=== PATIENT | male | born 1935 | race Caucasian/White ===

== ENCOUNTER 2017-01-24 11:41 | Emergency (ER) | payer MEDICARE, MEDICAID ==
[~2017-01-24] VITALS: Ht 165.1 cm; Wt 57.4 kg
[~2017-01-24 11:41] MED LIST: HYDR-3240 PO; TAMS-11 PO
[2017-01-24] MEDS ORDERED: FAMOTIDINE 20 MG/2 ML IVP ONE (12:30)
[2017-01-24] MEDS ORDERED: SODIUM CHLORIDE 0.9% 1,000ML IVBOLUS ONE (12:30)
[2017-01-24] MEDS ORDERED: ONDANSETRON 2MG/ML, 2ML IVPush ONE (12:30)
[2017-01-24] MEDS ORDERED: SODIUM CHLORIDE FLUSH 10ML SYR IVF ONE (12:30)
[2017-01-24] MEDS ORDERED: PROP40TA PO (12:31)
[2017-01-24] MEDS ORDERED: FAMOTIDINE 20 MG/2 ML ONE (12:32)
[2017-01-24] MEDS ORDERED: ONDANSETRON 2MG/ML, 2ML ONE (12:32)
[2017-01-24 13:04] LABS: BLOOD UREA NITROGEN 15 mg/dL (7-18)
[2017-01-24 13:07] LABS: ASPARTATE AMINO TRANSFERASE 12 U/L (15-37)
[2017-01-24 14:32] VITALS: BP 154/73
== END 2017-01-24 14:59 | disposition home or self-care (01) ==
LOC: ED 14:59
DX: E11.65 Type 2 diabetes mellitus with hyperglycemia (principal); I10 Essential (primary) hypertension; G20 Parkinson's disease; E87.6 Hypokalemia
CPT/HCPCS: 36415; 80053; 81003; 82962; 83690; 85025; 96361; 96374; 96375; 99285; J2405; J7030; S0028

== ENCOUNTER 2017-04-15 15:07 | Emergency (ER) | payer MEDICARE, MEDICAID ==
[~2017-04-15] VITALS: Ht 165.1 cm; Wt 63.6 kg
[~2017-04-15 15:07] MED LIST changes: +PROP40TA PO
[2017-04-15 15:14] VITALS: BP 145/94
[2017-04-15 15:56] LABS: BLOOD UREA NITROGEN 8 mg/dL (7-18)
[2017-04-15 15:59] LABS: HEMATOCRIT 48.7 % (39.2-51.8); WHITE BLOOD COUNT 6.9 x10^3/uL (3.4-10)
[2017-04-15 16:03] LABS: IS PT STATUS REG ER OR PRE ER? YES
== END 2017-04-15 16:08 | disposition left against medical advice (07) ==
LOC: ED 15:33
DX: R07.2 Precordial pain (principal); F10.120 Alcohol abuse with intoxication, uncomplicated; I10 Essential (primary) hypertension; E11.9 Type 2 diabetes mellitus without complications
CPT/HCPCS: 36415; 71010; 80048; 80307; 82040; 83880; 84484; 85025; 93005; 99285

== ENCOUNTER 2017-05-07 10:16 | Inpatient (IN) | payer MEDICARE, MEDICAID ==
[~2017-05-07] VITALS: Ht 165.1 cm; Wt 57.3 kg
[2017-05-07 10:57] LABS: HEMATOCRIT 43.2 % (39.2-51.8); HEMOGLOBIN 14.6 g/dL (13.7-18.0); WHITE BLOOD COUNT 11.3 x10^3/uL (3.4-10)
[2017-05-07] MEDS ORDERED: SODIUM CHLORIDE 0.9% 1,000ML IVBOLUS ONE (11:00)
[2017-05-07 11:09] LABS: ASPARTATE AMINO TRANSFERASE 644 U/L (15-37); BLOOD UREA NITROGEN 9 mg/dL (7-18)
[2017-05-07] MEDS ORDERED: HYDR-3240 PO (11:59)
[2017-05-07] MEDS ORDERED: MAGNESIUM SULFATE 1 GM, THIAMINE 100 MG, FOLIC ACID 1 MG, MVI ADULT 10 ML in SODIUM CHL... IV ONE (12:00)
[2017-05-07] MEDS ORDERED: LORazepam 2 MG/ML, 1ML IVPush ONE (12:00)
[2017-05-07] MEDS ORDERED: LORazepam 2 MG/ML, 1ML ONE (12:33)
[2017-05-07 12:37] LABS: ACETAMINOPHEN < 2 mcg/mL (10-30)
[2017-05-07] MEDS ORDERED: ONDANSETRON ODT 4 MG PO PRN (16:00)
[2017-05-07] MEDS ORDERED: GLUCAGON 1 MG IM PRN (16:00)
[2017-05-07] MEDS ORDERED: DEXTROSE 4 GM TAB.CHEW PO PRN (16:00)
[2017-05-07] MEDS ORDERED: DEXTROSE 50%, 50ML SYRINGE IVPush PRN (16:00)
[2017-05-07] MEDS ORDERED: LORazepam 2 MG/ML, 1ML IV PRN (16:00)
[2017-05-07] MEDS ORDERED: HEPARIN 5,000 UNITS/ML, 1ML ONE (16:54)
[2017-05-07] MEDS: INSULIN ASPART 100 UNITS/ML, PEN SQ-INSULIN SCH ×2 (17:21→21:55)
[2017-05-07] MEDS: HEPARIN 5,000 UNITS/ML, 1ML SQ SCH (17:22)
[2017-05-07] MEDS ORDERED: POTASSIUM CHLORIDE 20 MEQ in SODIUM CHLORIDE 0.9% 250 ML IV ONE (18:00)
[2017-05-07] MEDS: SODIUM CHLORIDE FLUSH 10ML SYR IVF SCH (21:47)
[2017-05-07] MEDS: SODIUM CHLORIDE 0.9% 1,000 ML IV SCH (21:47)
[2017-05-07 22:27] VITALS: BP 121/72
[2017-05-07] MEDS: LORazepam 2 MG/ML, 1ML IV PRN (22:30)
[2017-05-08] MEDS: HEPARIN 5,000 UNITS/ML, 1ML SQ SCH ×3 (00:34→16:01)
[2017-05-08 01:27] VITALS: BP 151/82
[2017-05-08] MEDS: LORazepam 2 MG/ML, 1ML IV PRN ×5 (02:34→21:11)
[2017-05-08] MEDS ORDERED: IBUPROFEN 200 MG TABLET PO ONE (05:00)
[2017-05-08 06:14] LABS: HEMATOCRIT 37.4 % (39.2-51.8); HEMOGLOBIN 12.6 g/dL (13.7-18.0); WHITE BLOOD COUNT 4.7 x10^3/uL (3.4-10)
[2017-05-08 06:35] LABS: ASPARTATE AMINO TRANSFERASE 1196 U/L (15-37); BLOOD UREA NITROGEN 13 mg/dL (7-18)
[2017-05-08] MEDS ORDERED: IBUPROFEN 200 MG TABLET PO PRN (07:00)
[2017-05-08 07:58] VITALS: BP 116/70
[2017-05-08] MEDS: INSULIN ASPART 100 UNITS/ML, PEN SQ-INSULIN SCH ×4 (08:12→21:22)
[2017-05-08] MEDS: TAMSULOSIN 0.4 MG CAP.ER.24H PO SCH (08:12)
[2017-05-08] MEDS: SODIUM CHLORIDE 0.9% 1,000 ML IV SCH (10:30)
[2017-05-08] MEDS: SODIUM CHLORIDE FLUSH 10ML SYR IVF SCH ×2 (10:30→21:11)
[2017-05-08 13:52] VITALS: BP 112/72
[2017-05-08] MEDS ORDERED: POTASSIUM CHLORIDE 20 MEQ in SODIUM CHLORIDE 0.9% 1,000 ML IV SCH ×2 (18:00→20:49)
[2017-05-08 18:56] VITALS: BP 136/77
[2017-05-08] MEDS: NS + 20MEQ KCL 1,000 ML IV SCH (21:11)
[2017-05-09] MEDS: LORazepam 2 MG/ML, 1ML IV PRN ×13 (00:11→22:40)
[2017-05-09] MEDS: HEPARIN 5,000 UNITS/ML, 1ML SQ SCH ×4 (00:11→23:58)
[2017-05-09 01:33] VITALS: BP 144/77
[2017-05-09] MEDS: NS + 20MEQ KCL 1,000 ML IV SCH ×2 (06:15→16:47)
[2017-05-09 07:27] LABS: ASPARTATE AMINO TRANSFERASE 767 U/L (15-37); BLOOD UREA NITROGEN 7 mg/dL (7-18)
[2017-05-09] MEDS: TAMSULOSIN 0.4 MG CAP.ER.24H PO SCH (07:45)
[2017-05-09 08:00] VITALS: BP 130/80
[2017-05-09] MEDS: INSULIN ASPART 100 UNITS/ML, PEN SQ-INSULIN SCH ×4 (08:09→21:00)
[2017-05-09 11:13] VITALS: BP 134/71
[2017-05-09] MEDS: SODIUM CHLORIDE FLUSH 10ML SYR IVF SCH ×2 (11:55→21:11)
[2017-05-10] MEDS: LORazepam 2 MG/ML, 1ML IV PRN ×4 (00:54→08:00)
[2017-05-10] MEDS: NS + 20MEQ KCL 1,000 ML IV SCH ×2 (03:13→13:53)
[2017-05-10 04:00] VITALS: BP 111/66
[2017-05-10 04:48] LABS: ASPARTATE AMINO TRANSFERASE 407 U/L (15-37); BLOOD UREA NITROGEN 4 mg/dL (7-18)
[2017-05-10 05:00] VITALS: BP 116/76
[2017-05-10] MEDS: INSULIN ASPART 100 UNITS/ML, PEN SQ-INSULIN SCH ×4 (05:54→20:51)
[2017-05-10] MEDS ORDERED: POTASSIUM CHLORIDE 20 MEQ in SODIUM CHLORIDE 0.9% 250 ML IV ONE (06:00)
[2017-05-10] MEDS: HEPARIN 5,000 UNITS/ML, 1ML SQ SCH ×2 (07:29→17:39)
[2017-05-10] MEDS: SODIUM CHLORIDE FLUSH 10ML SYR IVF SCH ×2 (09:37→20:44)
[2017-05-10] MEDS: methylPREDNISolone SOD SUCC 40 MG/ML IVPush SCH ×2 (10:05→18:45)
[2017-05-10] MEDS: CHLORDIAZEPOXIDE 25 MG CAPSULE PO SCH ×2 (10:15→16:00)
[2017-05-10] MEDS: TAMSULOSIN 0.4 MG CAP.ER.24H PO SCH (10:15)
[2017-05-10] MEDS ORDERED: CHLORDIAZEPOXIDE 25 MG CAPSULE PO SCH (21:00)
[2017-05-11] MEDS: HEPARIN 5,000 UNITS/ML, 1ML SQ SCH ×4 (00:04→23:59)
[2017-05-11] MEDS: methylPREDNISolone SOD SUCC 40 MG/ML IVPush SCH ×3 (01:55→18:53)
[2017-05-11 03:58] VITALS: BP 130/77
[2017-05-11 05:04] VITALS: BP 140/92
[2017-05-11] MEDS: INSULIN ASPART 100 UNITS/ML, PEN SQ-INSULIN SCH ×4 (06:22→20:17)
[2017-05-11 08:08] LABS: ASPARTATE AMINO TRANSFERASE 252 U/L (15-37); BLOOD UREA NITROGEN 10 mg/dL (7-18)
[2017-05-11] MEDS: SODIUM CHLORIDE FLUSH 10ML SYR IVF SCH ×2 (09:30→20:20)
[2017-05-11] MEDS: TAMSULOSIN 0.4 MG CAP.ER.24H PO SCH (09:31)
[2017-05-11] MEDS: INSULIN DETEMIR 100 UNITS/ML, PEN SQ-INSULIN SCH ×2 (09:31→20:18)
[2017-05-11] MEDS ORDERED: POTASSIUM CHLORIDE 20 MEQ TAB.ER.PRT PO ONE (10:00)
[2017-05-11] MEDS: NS + 20MEQ KCL 1,000 ML IV SCH (12:13)
[2017-05-12] MEDS ORDERED: ZOLPIDEM 5MG TABLET ONE (00:15)
[2017-05-12] MEDS ORDERED: ZOLPIDEM 5MG TABLET PO PRN (00:30)
[2017-05-12] MEDS: methylPREDNISolone SOD SUCC 40 MG/ML IVPush SCH ×2 (02:10→10:41)
[2017-05-12 04:00] VITALS: BP 142/70
[2017-05-12 04:51] LABS: ASPARTATE AMINO TRANSFERASE 118 U/L (15-37); BLOOD UREA NITROGEN 11 mg/dL (7-18)
[2017-05-12] MEDS: INSULIN ASPART 100 UNITS/ML, PEN SQ-INSULIN SCH ×4 (05:33→22:33)
[2017-05-12] MEDS: HEPARIN 5,000 UNITS/ML, 1ML SQ SCH ×2 (08:28→16:17)
[2017-05-12] MEDS: TAMSULOSIN 0.4 MG CAP.ER.24H PO SCH (08:28)
[2017-05-12] MEDS: SODIUM CHLORIDE FLUSH 10ML SYR IVF SCH ×2 (08:28→20:29)
[2017-05-12] MEDS: INSULIN DETEMIR 100 UNITS/ML, PEN SQ-INSULIN SCH ×2 (08:29→22:34)
[2017-05-12] MEDS: LORazepam 2 MG/ML, 1ML IV PRN ×4 (10:20→23:36)
[2017-05-12] MEDS: NS + 20MEQ KCL 1,000 ML IV SCH (11:38)
[2017-05-13 00:11] VITALS: BP 150/88
[2017-05-13] MEDS ORDERED: POTASSIUM CHLORIDE 20 MEQ TAB.ER.PRT PO ONE (06:30)
[2017-05-13] MEDS ORDERED: POTASSIUM CHLORIDE 40 MEQ in SODIUM CHLORIDE 0.9% 500 ML IV ONE (06:30)
[2017-05-13 07:09] VITALS: BP_SYST 146; BP_SYST 152; BP_DIAS 90; BP_DIAS 96
[2017-05-13] MEDS: HEPARIN 5,000 UNITS/ML, 1ML SQ SCH ×3 (07:54→16:35)
[2017-05-13] MEDS: INSULIN ASPART 100 UNITS/ML, PEN SQ-INSULIN SCH ×4 (07:59→22:28)
[2017-05-13] MEDS: TAMSULOSIN 0.4 MG CAP.ER.24H PO SCH (09:28)
[2017-05-13] MEDS: INSULIN DETEMIR 100 UNITS/ML, PEN SQ-INSULIN SCH ×2 (09:29→22:28)
[2017-05-13] MEDS: SODIUM CHLORIDE FLUSH 10ML SYR IVF SCH ×2 (09:32→22:28)
[2017-05-13 12:42] LABS: HIV 1&2 ANTIBODY SCREEN Nonreactive (Nonreactive); HIV-1 p24 ANTIGEN Nonreactive (Nonreactive)
[2017-05-13] MEDS ORDERED: POTASSIUM PHOSPHATE 44 MEQ in SODIUM CHLORIDE 0.9% 500 ML IV ONE (14:30)
[2017-05-13 15:00] VITALS: BP 148/86
[2017-05-13 19:54] VITALS: BP 139/86
[2017-05-14] MEDS: HEPARIN 5,000 UNITS/ML, 1ML SQ SCH ×3 (00:42→16:53)
[2017-05-14 01:48] VITALS: BP 150/83
[2017-05-14 05:23] LABS: ASPARTATE AMINO TRANSFERASE 50 U/L (15-37); BLOOD UREA NITROGEN 3 mg/dL (7-18)
[2017-05-14] MEDS ORDERED: POTASSIUM CHLORIDE 40 MEQ in SODIUM CHLORIDE 0.9% 500 ML IV ONE (06:30)
[2017-05-14] MEDS ORDERED: POTASSIUM CHLORIDE 20 MEQ TAB.ER.PRT PO ONE ×2 (06:30)
[2017-05-14] MEDS: INSULIN ASPART 100 UNITS/ML, PEN SQ-INSULIN SCH ×3 (07:00→16:52)
[2017-05-14 07:44] VITALS: BP 152/116
[2017-05-14] MEDS: INSULIN DETEMIR 100 UNITS/ML, PEN SQ-INSULIN SCH (08:08)
[2017-05-14] MEDS: TAMSULOSIN 0.4 MG CAP.ER.24H PO SCH (08:09)
[2017-05-14] MEDS: SODIUM CHLORIDE FLUSH 10ML SYR IVF SCH ×2 (08:10→23:58)
[2017-05-14 16:00] VITALS: BP 114/76
[2017-05-14] MEDS ORDERED: FLU VACC QS2017-18 (36MOS+) UP/PF 0.5 ML IM-VACC ONE (16:00)
[2017-05-14] MEDS ORDERED: PNEUMOCOCCAL 23 VACCINE IM-VACC ONE (16:00)
[2017-05-14] MEDS ORDERED: MAGNESIUM SULFATE PMX 2GM/50ML 50 ML IV ONE (16:30)
[2017-05-14] MEDS: LORazepam 2 MG/ML, 1ML IV PRN (16:51)
[2017-05-14 19:28] VITALS: BP 124/81
[2017-05-14 19:52] LABS: POTASSIUM,URINE RANDOM 48 mmol/L
[2017-05-15] MEDS: HEPARIN 5,000 UNITS/ML, 1ML SQ SCH ×3 (00:03→16:50)
[2017-05-15 02:25] VITALS: BP 144/89
[2017-05-15 05:51] LABS: BLOOD UREA NITROGEN 8 mg/dL (7-18)
[2017-05-15] MEDS: INSULIN ASPART 100 UNITS/ML, PEN SQ-INSULIN SCH ×4 (08:10→16:53)
[2017-05-15] MEDS: SODIUM CHLORIDE FLUSH 10ML SYR IVF SCH (08:13)
[2017-05-15] MEDS: INSULIN DETEMIR 100 UNITS/ML, PEN SQ-INSULIN SCH ×2 (08:21)
[2017-05-15] MEDS: TAMSULOSIN 0.4 MG CAP.ER.24H PO SCH (08:23)
[2017-05-15] MEDS ORDERED: MAGNESIUM CHLORIDE 64 MG TABLET.DR PO SCH (09:00)
[2017-05-15 09:09] VITALS: BP 84/53
[2017-05-15 09:15] VITALS: BP_SYST 84; BP_SYST 90; BP_DIAS 50; BP_DIAS 57
[2017-05-15] MEDS ORDERED: SODIUM CHLORIDE 0.9%, 500ML IVBOLUS ONE (09:30)
[2017-05-15 10:56] VITALS: BP 129/82
[2017-05-15 13:49] VITALS: BP 126/77
[2017-05-15] MEDS ORDERED: MAGN300C PO (14:54)
[2017-05-15] MEDS ORDERED: INSU100I28 SQ-INSULIN (14:54)
[2017-05-15] MEDS ORDERED: POTA25TA4 PO (14:54)
[2017-05-15] MEDS ORDERED: TAMS-11 PO (14:54)
[2017-05-15] MEDS: LORazepam 2 MG/ML, 1ML IV PRN ×2 (15:29→16:38)
[2017-05-15 16:36] VITALS: BP 127/85
== END 2017-05-15 18:31 | DRG 432 ==
LOC: ED 10:33 → EDIP 12:18 → 4NOR 21:00 → CCU 05-09 11:37 → 5SO 05-12 16:48
PROVIDERS: ADMIT Family Medicine; ATTEND Family Medicine
DX: K70.10 Alcoholic hepatitis without ascites (principal); G92 Toxic encephalopathy; E46 Unspecified protein-calorie malnutrition; G20 Parkinson's disease; E87.1 Hypo-osmolality and hyponatremia; F10.239 Alcohol dependence with withdrawal, unspecified; E11.9 Type 2 diabetes mellitus without complications; E87.6 Hypokalemia; I10 Essential (primary) hypertension; N40.0 Benign prostatic hyperplasia without lower urinary tract symptoms; F10.229 Alcohol dependence with intoxication, unspecified; Z68.21 Body mass index [BMI] 21.0-21.9, adult; Z79.4 Long term (current) use of insulin
CPT/HCPCS: 36415; 76705; 80048; 80053; 80074; 80307; 81001; 82140; 82607; 82746; 82962; 83036; 83735; 83930; 83935; 84100; 84132; 84133; 84443; 85025; 85610; 86592; 86703; 87081; 87899; 90732; 93005; 96361; 96372; 96374; J1644; J1815; J3411; J3475; J3480; 92523-GN; G0435; G0479; J2060; J2920; J7030; J7040; J7050

== ENCOUNTER 2018-09-30 09:25 | Inpatient (IN) | payer MEDICARE, MEDICAID ==
[~2018-09-30] VITALS: Ht 165.1 cm; Wt 62.1 kg
[~2018-09-30 09:25] MED LIST changes: +INSU100I28 SQ-INSULIN; +MAGN300C PO; +POTA25TA4 PO
[2018-09-30] MEDS ORDERED: ONDANSETRON ODT 4 MG PO ONE (10:00)
[2018-09-30] MEDS ORDERED: FAMOTIDINE 20 MG/2 ML IVPush ONE (10:00)
[2018-09-30] MEDS ORDERED: ONDANSETRON 2MG/ML, 2ML IVPush ONE (10:00)
[2018-09-30] MEDS ORDERED: SODIUM CHLORIDE FLUSH 10ML SYR IVF ONE (10:00)
[2018-09-30] MEDS ORDERED: FAMOTIDINE 20 MG TABLET PO ONE (10:00)
[2018-09-30] MEDS ORDERED: FAMOTIDINE 20 MG/2 ML ONE (10:20)
[2018-09-30] MEDS ORDERED: ONDANSETRON 2MG/ML, 2ML ONE (10:20)
[2018-09-30] MEDS ORDERED: TOPI25TA8 PO (10:27)
[2018-09-30] MEDS ORDERED: METF1000 PO (10:28)
[2018-09-30 10:29] LABS: BASOPHILS # (AUTO) 0.01 x10^3/uL (0-0.1); BASOPHILS % (AUTO) 0 % (0-1); EOSINOPHILS # (AUTO) 0.07 x10^3/uL (0-0.4); EOSINOPHILS % (AUTO) 1 % (1-7); LYMPHOCYTES # (AUTO) 1.01 x10^3/uL (1-3.4); LYMPHOCYTES % (AUTO) 14 % (22-44); MD NO; MEAN CORPUSCULAR HGB CONC 32.3 g/dL (33.2-36.2); MEAN CORPUSCULAR VOLUME 99.1 fL (81-97); MEAN PLATELET VOLUME 7.4 fL (7.4-10.4); MONOCYTES # (AUTO) 0.19 x10^3/uL (0.2-0.8); MONOCYTES % (AUTO) 3 % (2-9); NEUTROPHILS # (AUTO) 5.72 x10^3/uL (1.8-6.8); NEUTROPHILS % (AUTO) 82 % (42-75); PLATELET COUNT 314 x10^3/uL (130-400); RED BLOOD COUNT 4.85 x10^6/uL (4.38-5.82); RED CELL DISTRIBUTION WIDTH 13.7 % (9.4-14.8)
[2018-09-30] MEDS ORDERED: LATA2.5D3 RIGHTEYE (10:29)
[2018-09-30] MEDS ORDERED: MORPHINE SULFATE 4 MG/ML, 1ML ONE ×2 (10:32→10:49)
[2018-09-30] MEDS: MORPHINE SULFATE 4 MG/ML, 1ML IVPush PRN ×2 (10:34→10:53)
--- NOTE | 2018-09-30 10:40 | NUR ---
md to bedside for assessment.
[2018-09-30 10:41] LABS: ALANINE AMINOTRANSFERASE 18 U/L (12-78); ALBUMIN 4.2 g/dL (3.4-5.0); ANION GAP 10 mmol/L (5-15); CALCIUM 9.3 mg/dL (8.5-10.1); CHLORIDE 104 mmol/L (98-107); CREATININE 0.84 mg/dL (0.7-1.3)
[2018-09-30 10:43] LABS: ALKALINE PHOSPHATASE 63 U/L (45-117); BILIRUBIN,TOTAL 1.4 mg/dL (0.2-1.0)
--- NOTE | 2018-09-30 10:51 | NUR ---
report form [facility]. pt medicated per oct. connected to monitors. vss. pt to ct at this time.
--- NOTE | 2018-09-30 10:53 | NUR ---
SECOND DOSE OF MORPHINE 4MG GIVEN TO PATIENT FOR SEVERE ABD PAIN. PT TO CT AT THIS TIME.
[2018-09-30] MEDS ORDERED: OMNIPAQUE 350 MG/ML, 100ML BOTTLE ONE (11:03)
--- NOTE | 2018-09-30 11:08 | NUR ---
pt back from ct
[2018-09-30 11:10] LABS: MICROSCOPIC INDICATED
--- NOTE | 2018-09-30 11:14 | NUR ---
lab to bedside
[2018-09-30] MEDS ORDERED: PHENYLEPHRINE 10 MG/ML ONE (11:16)
[2018-09-30 11:26] LABS: CULTURE INDICATED? NO
--- NOTE | 2018-09-30 11:58 | NUR ---
RECEIVED REPORT FROM JAGRUTI DE SOUZA. CARE ASSUMED. PT AND NEPHEW UPDATED ON POC, TO BE ADMITTED TO HOSPITAL, AWAITING ROOM ON FLOOR, AGREE TO POC. PT ASSISTED WITH URINAL, DECLINED OFFER TO AMBULATE TO RESTROOM. PT REQUESTING PAIN MEDICATION "PAIN IS COMING BACK, LIKE 05/22" TO DISCUSS WITH DR. DARNELL. CALL LIGHT IN REACH. FALL PRECAUTIONS IN PLACE. SIDE RAILS UPX2.
--- NOTE | 2018-09-30 12:00 | NUR ---
us and admit orders received at this time. vss. call light within reach.
--- NOTE | 2018-09-30 12:05 | NUR ---
DISCUSSED LACTIC ACID WITH DR. DARNELL, AWARE, NO IV FLUIDS PER MD AT THIS TIME.
[2018-09-30] MEDS ORDERED: HYDROmorphone 1 MG/ML, 1ML ONE ×2 (12:07→13:51)
[2018-09-30] MEDS: HYDROmorphone 2 MG/ML, 1ML IVPush PRN ×2 (12:09→13:53)
--- NOTE | 2018-09-30 12:13 | NUR ---
PT MEDICATED NOTED PER DR. DARNELL ORDER FOR 10 PAIN. RESTING COMFORTABLY. VSS. NEPHEW AT BEDSIDE. CALL LIGHT IN REACH
--- NOTE | 2018-09-30 12:20 | NUR ---
PT IN US
[2018-09-30] MEDS ORDERED: LABETALOL 5MG/ML, 20ML IVPush PRN (12:30)
[2018-09-30] MEDS ORDERED: BISACODYL 10 MG SUPP PR PRN (12:30)
[2018-09-30] MEDS ORDERED: POLYETHYLENE GLYCOL 17 GM PACKET PO PRN (12:30)
[2018-09-30] MEDS ORDERED: DOCUSATE 100 MG CAPSULE PO PRN (12:30)
[2018-09-30] MEDS ORDERED: ENALAPRILAT 1.25 MG/ML, 2ML IVPush PRN (12:30)
--- NOTE | 2018-09-30 12:55 | NUR ---
PT REMAINS IN US. ADMITTING PROVIDER AT BEDSIDE SPEAKING WITH PT NEPHEW.
--- NOTE | 2018-09-30 13:07 | NUR ---
PT REMAINS IN US
--- NOTE | 2018-09-30 13:33 | NUR ---
PT BACK FROM US. ASSISTED WITH URINAL. PT AWARE HE REMAINS NPO AT THIS TIME. LAST TIME HE ATE/DRANK WAS [employer] DUMPLING SOUP LAST NIGHT AT 1800. PT REPORTS "PAIN IS BETTER, IT'S WHERE IT NORMALLY IS, I'M OKAY RIGHT NOW." RATES PAIN 6/10. REFUSES NEED FOR ADDITIONAL PAIN MEDICATION AT THIS TIME. NEPHEW AT BEDSIDE. VSS. CALL LIGHT IN REACH.
[2018-09-30] MEDS: SODIUM CHLORIDE 0.9% 1,000 ML IV SCH ×2 (13:36→21:44)
--- NOTE | 2018-09-30 13:38 | NUR ---
April alvarez in [facility] - 09/30/18 at 1340 by JARET ROOM [facility] RECEIVED, ATTEMPTED TO CALL REPORT TO HAMMAD Ovalle RN FOR ROOM [facility] AT THIS TIME, UNABLE TO REACH. AWAITING RETURN CALL
--- NOTE | 2018-09-30 13:40 | NUR ---
ROOM 473 RECEIVED, ATTEMPTED TO CALL REPORT TO EBONY DE SOUZA AT THIS TIME, UNABLE TO REACH, AWAITING RETURN CALL.
--- NOTE | 2018-09-30 13:47 | NUR ---
REPORT TO EBONY DE SOUZA AT THIS TIME. PT AWAITING TRANSPORT TO FLOOR.
--- NOTE | 2018-09-30 13:54 | NUR ---
ADMITTING PROVIDER AT BEDSIDE FOR EVALUATION. PT MEDICATED NOTED PER ORDER FOR 6/10 ABD PAIN "WORSE AFTER THE DOCTOR PUSHED ON MY STOMACH." VSS. CALL LIGHT IN REACH. AWAITING TRANSPORT TO FLOOR.
[2018-09-30 14:16] VITALS: BP 161/94
[2018-09-30] MEDS ORDERED: CEFOTETAN PMX 2GM/50ML 50 ML ONE (14:29)
[2018-09-30] MEDS ORDERED: FENTANYL PF 250 MCG/5ML ONE (14:29)
[2018-09-30] MEDS ORDERED: BUPIVACAINE/PF-EPI 0.5% 1:200K ONE (14:34)
[2018-09-30] MEDS ORDERED: PROMETHAZINE 25 MG/ML, 1ML IM PRN ×2 (15:00)
[2018-09-30] MEDS ORDERED: PROMETHAZINE 12.5 MG SUPP PR PRN (15:00)
[2018-09-30] MEDS ORDERED: PROMETHAZINE 25 MG/ML, 1ML IV PRN (15:00)
[2018-09-30] MEDS ORDERED: PROMETHAZINE 25 MG SUPP PR PRN (15:00)
[2018-09-30] MEDS ORDERED: ONDANSETRON ODT 8 MG PO PRN (15:00)
[2018-09-30] MEDS ORDERED: SODIUM CHLORIDE 0.9% 1,000ML IVBOLUS ONE (15:00)
[2018-09-30] MEDS ORDERED: ONDANSETRON 2MG/ML, 2ML IV PRN (15:00)
[2018-09-30] MEDS ORDERED: HYDROmorphone 2 MG/ML, 1ML IVPush PRN (15:00)
[2018-09-30] MEDS ORDERED: OXYcodone 5 MG/5 ML ORAL.SOL UDC PO PRN (15:00)
[2018-09-30] MEDS ORDERED: hydrALAzine 20 MG/ML, 1ML IV PRN (15:00)
[2018-09-30] MEDS ORDERED: LABETALOL 5MG/ML, 20ML IV PRN (15:00)
[2018-09-30] MEDS ORDERED: MEPERIDINE/PF 25MG/0.5ML IVPush PRN (15:00)
[2018-09-30] MEDS ORDERED: MORPHINE SULFATE 4 MG/ML, 1ML IVPush PRN (15:00)
[2018-09-30] MEDS ORDERED: NEOSTIGMINE 1 MG/ML, 10ML ONE (15:28)
[2018-09-30] MEDS ORDERED: ROCURONIUM 10MG/ML,5ML ONE (15:28)
[2018-09-30] MEDS ORDERED: GLYCOPYRROLATE 0.2MG/1ML, 5ML ONE (15:28)
[2018-09-30] MEDS ORDERED: PROPOFOL 10 MG/ML, 20ML ONE (15:28)
[2018-09-30] MEDS ORDERED: SUGAMMADEX 200 MG/2 ML IVPush ONE (15:53)
[2018-09-30] MEDS ORDERED: OXYcodone 5 MG/5 ML ORAL.SOL UDC ONE (16:31)
[2018-09-30] MEDS ORDERED: FENTANYL PF 100 MCG/2ML ONE (16:33)
[2018-09-30] MEDS: FENTANYL PF 100 MCG/2ML IV PRN ×2 (16:35→16:45)
[2018-09-30] MEDS: morphine SULFATE 10 MG/ML, 1ML IVPush PRN (18:41)
[2018-09-30] MEDS: hydrOXyzine 50MG TABLET PO PRN (18:44)
[2018-09-30 18:45] VITALS: BP 124/82
[2018-09-30 21:35] VITALS: BP 109/66
[2018-09-30] MEDS: TAMSULOSIN 0.4 MG CAP.ER.24H PO SCH (22:14)
[2018-09-30] MEDS: FAMOTIDINE 20 MG/2 ML IVPush SCH (22:16)
[2018-09-30] MEDS: PIPERACILLIN/TAZO/PMX 3.375GM 50 ML IV SCH (22:16)
[2018-10-01 00:10] VITALS: BP 97/64
[2018-10-01 04:07] VITALS: BP 99/62
[2018-10-01 04:10] LABS: ANION GAP 8 mmol/L (5-15); CALCIUM 7.7 mg/dL (8.5-10.1); CHLORIDE 105 mmol/L (98-107)
[2018-10-01 04:13] LABS: ALANINE AMINOTRANSFERASE 158 U/L (12-78); ALKALINE PHOSPHATASE 68 U/L (45-117); BILIRUBIN,TOTAL 2.3 mg/dL (0.2-1.0); CREATININE 1.21 mg/dL (0.7-1.3); TOTAL PROTEIN 6.4 g/dL (6.4-8.2)
[2018-10-01 04:41] LABS: MEAN CORPUSCULAR HEMOGLOBIN 32.6 pg (27.5-34.5); MEAN CORPUSCULAR HGB CONC 33.4 g/dL (33.2-36.2); MEAN CORPUSCULAR VOLUME 97.8 fL (81-97); PLATELET COUNT 248 x10^3/uL (130-400); RED BLOOD COUNT 4.24 x10^6/uL (4.38-5.82); RED CELL DISTRIBUTION WIDTH 14.1 % (9.4-14.8)
[2018-10-01 05:23] LABS: BASOPHILS % (AUTO) 0 % (0-1); EOSINOPHILS % (AUTO) 0 % (1-7); LYMPHOCYTES # (AUTO) 0.23 x10^3/uL (1-3.4); LYMPHOCYTES % (AUTO) 2 % (22-44); MD SCAN; MONOCYTES # (AUTO) 0.23 x10^3/uL (0.2-0.8); MONOCYTES % (AUTO) 2 % (2-9); NEUTROPHILS % (AUTO) 96 % (42-75)
[2018-10-01] MEDS: morphine SULFATE 10 MG/ML, 1ML IVPush PRN ×3 (06:05→22:12)
[2018-10-01] MEDS: PIPERACILLIN/TAZO/PMX 3.375GM 50 ML IV SCH ×3 (06:05→22:21)
[2018-10-01] MEDS ORDERED: MAGNESIUM SULFATE PMX 2GM/50ML 50 ML IV ONE (07:30)
[2018-10-01] MEDS ORDERED: SODIUM CHLORIDE 0.9% 1,000 ML IV SCH ×2 (08:00→12:20)
[2018-10-01] MEDS: TAMSULOSIN 0.4 MG CAP.ER.24H PO SCH (08:02)
[2018-10-01] MEDS: FAMOTIDINE 20 MG/2 ML IVPush SCH ×2 (08:02→22:13)
[2018-10-01] MEDS ORDERED: FOLIC ACID 5 MG/ML IM ONE (08:30)
[2018-10-01] MEDS ORDERED: LORazepam 2 MG/ML, 1ML IV PRN ×5 (08:30)
[2018-10-01] MEDS ORDERED: THIAMINE 200 MG in DEXTROSE 5% 50 ML IVPB ONE (08:30)
[2018-10-01] MEDS ORDERED: FOLIC ACID 1 MG TABLET PO ONE (09:00)
[2018-10-01] MEDS ORDERED: THIAMINE 100MG TABLET PO ONE (09:00)
[2018-10-01] MEDS: MULTIVITAMINS/MINERALS TABLET PO SCH (09:18)
[2018-10-01] MEDS: OXYcodone IR 5MG TABLET PO PRN ×2 (09:30→10:05)
[2018-10-01 10:15] VITALS: BP 92/57
[2018-10-01] MEDS: HEPARIN 5,000 UNITS/ML, 1ML SQ SCH ×2 (11:32→22:13)
[2018-10-01 14:03] VITALS: BP 119/63
[2018-10-01] MEDS ORDERED: MORPHINE SULFATE 4 MG/ML, 1ML ONE ×2 (16:47→16:56)
[2018-10-01 19:35] VITALS: BP 117/70
[2018-10-01] MEDS: hydrOXyzine 50MG TABLET PO PRN (22:13)
[2018-10-02 00:31] VITALS: BP 137/76
[2018-10-02] MEDS: OXYcodone IR 5MG TABLET PO PRN ×5 (00:34→22:02)
[2018-10-02] MEDS: morphine SULFATE 10 MG/ML, 1ML IVPush PRN (05:05)
[2018-10-02 05:56] LABS: BASOPHILS # (AUTO) 0.02 x10^3/uL (0-0.1); BASOPHILS % (AUTO) 0 % (0-1); EOSINOPHILS # (AUTO) 0.15 x10^3/uL (0-0.4); EOSINOPHILS % (AUTO) 2 % (1-7); LYMPHOCYTES # (AUTO) 0.64 x10^3/uL (1-3.4); LYMPHOCYTES % (AUTO) 7 % (22-44); MD NO; MEAN CORPUSCULAR HEMOGLOBIN 33.3 pg (27.5-34.5); MEAN CORPUSCULAR HGB CONC 33.8 g/dL (33.2-36.2); MEAN CORPUSCULAR VOLUME 98.6 fL (81-97); MEAN PLATELET VOLUME 7.2 fL (7.4-10.4); MONOCYTES # (AUTO) 0.31 x10^3/uL (0.2-0.8); MONOCYTES % (AUTO) 3 % (2-9); NEUTROPHILS # (AUTO) 8.76 x10^3/uL (1.8-6.8); NEUTROPHILS % (AUTO) 89 % (42-75); PLATELET COUNT 205 x10^3/uL (130-400); RED CELL DISTRIBUTION WIDTH 14.2 % (9.4-14.8)
[2018-10-02] MEDS: PIPERACILLIN/TAZO/PMX 3.375GM 50 ML IV SCH (06:07)
[2018-10-02 06:08] LABS: ALANINE AMINOTRANSFERASE 112 U/L (12-78); ALBUMIN 2.9 g/dL (3.4-5.0); ANION GAP 7 mmol/L (5-15); CALCIUM 7.9 mg/dL (8.5-10.1); CHLORIDE 104 mmol/L (98-107); CREATININE 0.72 mg/dL (0.7-1.3)
[2018-10-02 06:10] LABS: ALKALINE PHOSPHATASE 72 U/L (45-117)
[2018-10-02] MEDS ORDERED: POTASSIUM PHOS 4.4 MEQ/ML IV ONE (07:30)
[2018-10-02] MEDS ORDERED: POTASSIUM PHOSPHATE 44 MEQ in SODIUM CHLORIDE 0.9% 500 ML IV ONE (08:00)
[2018-10-02] MEDS ORDERED: SODIUM CHLORIDE 0.9% 1,000 ML IV SCH (08:00)
[2018-10-02] MEDS: TAMSULOSIN 0.4 MG CAP.ER.24H PO SCH (08:53)
[2018-10-02] MEDS: MULTIVITAMINS/MINERALS TABLET PO SCH (08:53)
[2018-10-02] MEDS ORDERED: MORPHINE SULFATE 4 MG/ML, 1ML IVPush PRN (09:00)
[2018-10-02 09:01] VITALS: BP 172/90
[2018-10-02] MEDS: HEPARIN 5,000 UNITS/ML, 1ML SQ SCH ×2 (10:23→20:44)
[2018-10-02 12:25] VITALS: BP 160/81
[2018-10-02 19:39] VITALS: BP 146/88
[2018-10-02] MEDS: LATANOPROST OP SCH ×2 (20:00→21:00)
[2018-10-03] MEDS: ONDANSETRON 2MG/ML, 2ML IVPush PRN ×2 (00:23→06:32)
[2018-10-03 01:08] VITALS: BP 150/102
[2018-10-03 05:16] LABS: ALBUMIN 2.9 g/dL (3.4-5.0); ANION GAP 8 mmol/L (5-15); CALCIUM 8.3 mg/dL (8.5-10.1); CHLORIDE 102 mmol/L (98-107)
[2018-10-03 05:19] LABS: ALANINE AMINOTRANSFERASE 78 U/L (12-78); ALKALINE PHOSPHATASE 82 U/L (45-117); BILIRUBIN,TOTAL 2.8 mg/dL (0.2-1.0); CREATININE 0.65 mg/dL (0.7-1.3); TOTAL PROTEIN 6.6 g/dL (6.4-8.2)
[2018-10-03] MEDS ORDERED: SODIUM PHOSPHATE 10 MMOL in SODIUM CHLORIDE 0.9% 500 ML IV ONE (06:00)
[2018-10-03] MEDS: OXYcodone IR 5MG TABLET PO PRN ×4 (06:32→22:37)
[2018-10-03 07:00] VITALS: BP 133/81
[2018-10-03] MEDS: TAMSULOSIN 0.4 MG CAP.ER.24H PO SCH (08:04)
[2018-10-03] MEDS: MULTIVITAMINS/MINERALS TABLET PO SCH (08:04)
[2018-10-03] MEDS: HEPARIN 5,000 UNITS/ML, 1ML SQ SCH ×2 (09:49→20:08)
[2018-10-03 13:08] VITALS: BP 132/80
[2018-10-03 19:50] VITALS: BP 158/97
[2018-10-03] MEDS: SENNA/DOCUSATE TABLET PO SCH (20:08)
[2018-10-03] MEDS: LATANOPROST OP SCH (20:08)
[2018-10-04 02:51] VITALS: BP_SYST 148; BP_SYST 162; BP_DIAS 103; BP_DIAS 94
[2018-10-04] MEDS: ONDANSETRON 2MG/ML, 2ML IVPush PRN ×3 (04:24→22:05)
[2018-10-04] MEDS: OXYcodone IR 5MG TABLET PO PRN (04:53)
[2018-10-04 08:57] VITALS: BP 148/77
[2018-10-04] MEDS: SENNA/DOCUSATE TABLET PO SCH ×2 (09:18→19:47)
[2018-10-04] MEDS: MULTIVITAMINS/MINERALS TABLET PO SCH (09:18)
[2018-10-04] MEDS: TAMSULOSIN 0.4 MG CAP.ER.24H PO SCH (09:18)
[2018-10-04] MEDS: HEPARIN 5,000 UNITS/ML, 1ML SQ SCH ×2 (09:58→22:00)
[2018-10-04] MEDS ORDERED: MORPHINE SULFATE 4 MG/ML, 1ML IV ONE (12:00)
[2018-10-04] MEDS: POTASSIUM PHOSPHATE IV SCH ×2 (12:15→22:28)
[2018-10-04] MEDS: [UNRECOGNIZED DRUG - OTHER] IV SCH ×2 (12:15→22:28)
[2018-10-04] MEDS: POTASSIUM CHLORIDE IV SCH ×2 (12:15→22:28)
[2018-10-04 14:13] VITALS: BP 152/95
[2018-10-04] MEDS: KETOROLAC 30 MG/1 ML IVPush SCH ×2 (15:43→22:00)
[2018-10-04] MEDS ORDERED: morphine SULFATE 10 MG/ML, 1ML IVPush PRN (16:00)
[2018-10-04 20:03] VITALS: BP 122/80
[2018-10-04] MEDS: LATANOPROST OP SCH (22:00)
[2018-10-05 02:06] VITALS: BP 127/74
[2018-10-05] MEDS: ONDANSETRON 2MG/ML, 2ML IVPush PRN (04:18)
[2018-10-05] MEDS: KETOROLAC 30 MG/1 ML IVPush SCH ×4 (04:18→22:57)
[2018-10-05 06:21] LABS: BASOPHILS # (AUTO) 0.01 x10^3/uL (0-0.1); BASOPHILS % (AUTO) 0 % (0-1); EOSINOPHILS # (AUTO) 0.23 x10^3/uL (0-0.4); EOSINOPHILS % (AUTO) 5 % (1-7); LYMPHOCYTES # (AUTO) 0.49 x10^3/uL (1-3.4); LYMPHOCYTES % (AUTO) 11 % (22-44); MD NO; MEAN CORPUSCULAR HEMOGLOBIN 33.1 pg (27.5-34.5); MEAN CORPUSCULAR HGB CONC 34.2 g/dL (33.2-36.2); MEAN CORPUSCULAR VOLUME 96.9 fL (81-97); MEAN PLATELET VOLUME 7.1 fL (7.4-10.4); MONOCYTES # (AUTO) 0.55 x10^3/uL (0.2-0.8); MONOCYTES % (AUTO) 12 % (2-9); NEUTROPHILS # (AUTO) 3.28 x10^3/uL (1.8-6.8); NEUTROPHILS % (AUTO) 72 % (42-75); PLATELET COUNT 248 x10^3/uL (130-400); RED BLOOD COUNT 3.94 x10^6/uL (4.38-5.82); RED CELL DISTRIBUTION WIDTH 13.5 % (9.4-14.8)
[2018-10-05 06:27] LABS: ALANINE AMINOTRANSFERASE 45 U/L (12-78); ALBUMIN 2.4 g/dL (3.4-5.0); ANION GAP 10 mmol/L (5-15); CALCIUM 7.8 mg/dL (8.5-10.1); CHLORIDE 99 mmol/L (98-107); CREATININE 0.53 mg/dL (0.7-1.3)
[2018-10-05 06:29] LABS: ALKALINE PHOSPHATASE 81 U/L (45-117); BILIRUBIN,TOTAL 2.1 mg/dL (0.2-1.0); TOTAL PROTEIN 5.6 g/dL (6.4-8.2)
[2018-10-05 08:36] VITALS: BP 129/80
[2018-10-05] MEDS ORDERED: CEPHALEXIN 500 MG CAPSULE PO SCH (09:00)
[2018-10-05] MEDS: SENNA/DOCUSATE TABLET PO SCH ×2 (09:00→20:26)
[2018-10-05] MEDS: MULTIVITAMINS/MINERALS TABLET PO SCH (09:55)
[2018-10-05] MEDS: [UNRECOGNIZED DRUG - OTHER] IV SCH ×2 (09:55→20:22)
[2018-10-05] MEDS: POTASSIUM PHOSPHATE IV SCH ×2 (09:55→20:22)
[2018-10-05] MEDS: TAMSULOSIN 0.4 MG CAP.ER.24H PO SCH (09:55)
[2018-10-05] MEDS: POTASSIUM CHLORIDE IV SCH ×2 (09:55→20:22)
[2018-10-05] MEDS: HEPARIN 5,000 UNITS/ML, 1ML SQ SCH ×2 (10:33→22:57)
[2018-10-05 12:34] VITALS: BP 127/78
[2018-10-05 20:18] VITALS: BP 125/75
[2018-10-05] MEDS: LATANOPROST OP SCH (20:22)
[2018-10-06 00:33] VITALS: BP 128/71
[2018-10-06] MEDS: KETOROLAC 30 MG/1 ML IVPush SCH ×2 (04:43→11:44)
[2018-10-06 05:52] LABS: CHLORIDE 101 mmol/L (98-107)
[2018-10-06 05:59] LABS: ANION GAP 11 mmol/L (5-15); CALCIUM 7.7 mg/dL (8.5-10.1); CREATININE 0.45 mg/dL (0.7-1.3)
[2018-10-06] MEDS: [UNRECOGNIZED DRUG - OTHER] IV SCH (06:30)
[2018-10-06] MEDS: POTASSIUM PHOSPHATE IV SCH (06:30)
[2018-10-06] MEDS: POTASSIUM CHLORIDE IV SCH (06:30)
[2018-10-06 07:41] VITALS: BP 136/84
[2018-10-06] MEDS: SENNA/DOCUSATE TABLET PO SCH (07:48)
[2018-10-06] MEDS: TAMSULOSIN 0.4 MG CAP.ER.24H PO SCH (07:48)
[2018-10-06] MEDS: MULTIVITAMINS/MINERALS TABLET PO SCH (07:48)
[2018-10-06] MEDS ORDERED: SERTRALINE 50MG TABLET PO SCH (10:00)
[2018-10-06] MEDS ORDERED: POTASSIUM CHLORIDE IV SCH (11:30)
[2018-10-06] MEDS ORDERED: [UNRECOGNIZED DRUG - OTHER] IV SCH (11:30)
[2018-10-06] MEDS ORDERED: POTASSIUM PHOSPHATE IV SCH (11:30)
[2018-10-06] MEDS: HEPARIN 5,000 UNITS/ML, 1ML SQ SCH (11:44)
[2018-10-06] MEDS ORDERED: OXYC5TAB3 PO (13:37)
[2018-10-06] MEDS ORDERED: TRAZ50TA66 PO (13:37)
[2018-10-06] MEDS ORDERED: SERT50TA28 PO (13:37)
[2018-10-06] MEDS ORDERED: TAMS-11 PO (13:42)
[2018-10-06 15:19] VITALS: BP 147/81
[2018-10-06] MEDS ORDERED: TRAZODONE 50MG TABLET PO SCH (21:00)
== END 2018-10-06 16:47 | disposition home health service (06) | DRG 853 ==
LOC: ED 11:40 → EDIP 11:41 → ED 11:41 → 4NOR 14:08 → 4EST 10-03 16:37 → 4NOR 10-03 16:37
PROVIDERS: ADMIT Hospitalist; ATTEND Hospitalist
PROC: 0FT44ZZ Resection of Gallbladder, Percutaneous Endoscopic Approach (ICD-10-PCS; 2018-09-30)
PROC: 0T7D8ZZ Dilation of Urethra, Via Natural or Artificial Opening Endoscopic (ICD-10-PCS; principal; 2018-09-30 15:30)
PROC: 0D9670Z Drainage of Stomach with Drainage Device, Via Natural or Artificial Opening (ICD-10-PCS; 2018-10-04)
DX: A41.9 Sepsis, unspecified organism (principal); E43 Unspecified severe protein-calorie malnutrition; K81.0 Acute cholecystitis; K56.7 Ileus, unspecified; F32.9 Major depressive disorder, single episode, unspecified; K66.0 Peritoneal adhesions (postprocedural) (postinfection); G25.0 Essential tremor; H40.9 Unspecified glaucoma; R33.8 Other retention of urine; E11.9 Type 2 diabetes mellitus without complications; F10.20 Alcohol dependence, uncomplicated; N35.919 Unspecified urethral stricture, male, unspecified site; N40.0 Benign prostatic hyperplasia without lower urinary tract symptoms; Z91.14 Patient's other noncompliance with medication regimen; Z79.84 Long term (current) use of oral hypoglycemic drugs
CPT/HCPCS: 36415; 70450; 74018; 74022; 74177; 74181; 76700; 80048; 80053; 81001; 83605; 83690; 83735; 84100; 84145; 85025; 87040; 87086; 88304; 93005; G0378; J1170; J1644; J1885; J2405; J2543; J2704; J2710; J3010; J3480; J3490; Q9967; J2270; J2370; J3475; J7030; J7040

== ENCOUNTER 2019-02-13 12:18 | Emergency (ER) | payer MEDICARE, MEDICAID ==
[~2019-02-13] VITALS: Ht 162.6 cm; Wt 52.2 kg
[~2019-02-13 12:18] MED LIST changes: +LATA2.5D3 RIGHTEYE; +METF1000 PO; +OXYC5TAB3 PO; +SERT50TA28 PO; +TOPI25TA8 PO; +TRAZ50TA66 PO
[2019-02-13 13:03] LABS: PH, VENOUS 7.375 pH (7.320-7.420)
[2019-02-13 13:04] LABS: FIO2 ROOM AIR %
[2019-02-13 13:07] LABS: BASOPHILS # (AUTO) 0.02 x10^3/uL (0-0.1); BASOPHILS % (AUTO) 0 % (0-1); EOSINOPHILS # (AUTO) 0.08 x10^3/uL (0-0.4); EOSINOPHILS % (AUTO) 2 % (1-7); LYMPHOCYTES # (AUTO) 0.96 x10^3/uL (1-3.4); LYMPHOCYTES % (AUTO) 24 % (22-44); MD NO; MEAN CORPUSCULAR HEMOGLOBIN 31.4 pg (27.5-34.5); MEAN CORPUSCULAR HGB CONC 32.8 g/dL (33.2-36.2); MEAN CORPUSCULAR VOLUME 95.8 fL (81-97); MEAN PLATELET VOLUME 7.7 fL (7.4-10.4); MONOCYTES # (AUTO) 0.47 x10^3/uL (0.2-0.8); MONOCYTES % (AUTO) 12 % (2-9); NEUTROPHILS # (AUTO) 2.45 x10^3/uL (1.8-6.8); NEUTROPHILS % (AUTO) 62 % (42-75); PLATELET COUNT 269 x10^3/uL (130-400); RED CELL DISTRIBUTION WIDTH 13.9 % (9.4-14.8)
[2019-02-13 13:12] LABS: ALANINE AMINOTRANSFERASE 30 U/L (12-78); ALBUMIN 3.9 g/dL (3.4-5.0); ANION GAP 11 mmol/L (5-15); CALCIUM 8.9 mg/dL (8.5-10.1); CHLORIDE 97 mmol/L (98-107); CREATININE 0.93 mg/dL (0.7-1.3)
[2019-02-13 13:15] LABS: ALKALINE PHOSPHATASE 124 U/L (45-117); BILIRUBIN,TOTAL 0.8 mg/dL (0.2-1.0); TOTAL PROTEIN 7.9 g/dL (6.4-8.2)
--- NOTE | 2019-02-13 13:30 | NUR ---
PRESENTS THROUGH TRIAGE FOR FATIGUE AND MULTIPLE FALLS IN THE LAST 7 DAYS. FELL 2 TIMES TODAY. REPORTS HE HAS BEEN DRINKING/HAS PARKISONS AND MY FSBS "ABOUT 400 AT HOME." NO DEFORMITIES ASSESSED OR REPORTED W/ EXCEPTION LEFT FRONT CANINE TOOTH BEING KNOCKED OUT (NO BLEEDING). DENIES LOC/NO BLOOD THINNERS PLACED ON BASS VIOL REPAIRER TO RESTROOM FOR US
[2019-02-13] MEDS ORDERED: INSULIN SINGLE DOSE, ER SQ-INSULIN ONE ×2 (13:38→13:44)
--- NOTE | 2019-02-13 13:47 | NUR ---
AFTER CLARIFICATION WITH PROVIDER- TO ADMINISTER 6 UNITS REGULAR INSULIN RATHER THAN ORIGIANL ORDER FOR 8. DOSE VERIFIED BY MICHAEL DE SOUZA
[2019-02-13] MEDS ORDERED: INSULIN REGULAR 100 UNITS/ML, 3ML VIAL SQ-INSULIN ONE ×2 (14:00)
--- NOTE | 2019-02-13 14:02 | NUR ---
OFFSET LITHOGRAPHIC PRESS SETTER SPOKE TO PROVIDER IN R/T TO DISPO. OFFSET LITHOGRAPHIC PRESS SETTER FEELS PATIENT UNSAFE TO BE D/C'D: LIVES ALONE. HAS BEEN FEELING MORE OFF BALANCE AND HAS HAD 3 FALLS IN THE LAST 2 DAYS. PATIENT HAS BEEN TRYING TO REMEDIATE SYMPTOMS WITH HIGH SUGAR DIET-PROVIDER CONSIDERING URINE SAMPLE SENT
[2019-02-13 14:26] LABS: ACETONE, SERUM Trace (10mg/dL) mg/dL (Negative)
[2019-02-13 14:28] LABS: CULTURE INDICATED? NO; MICROSCOPIC NOT IND
--- NOTE | 2019-02-13 14:42 | NUR ---
repeat fsbs 344 vitals stable on monitor provider considering dispo plan-piv deferred at this time
--- NOTE | 2019-02-13 14:55 | NUR ---
REPORT TO ILDA DE SOUZA
--- NOTE | 2019-02-13 14:55 | NUR ---
SHEET ROCKER AT BEDSIDE
--- NOTE | 2019-02-13 15:05 | NUR ---
RECEIVED REPORT FROM [facility]. PT RESTING ON GURNEY. NADN. VSS. BS RECHECKED AND NOTED TO BE 273. SW REMAINS AT BEDSIDE.
--- NOTE | 2019-02-13 15:36 | NUR ---
PER SW WILL SET UP FOR PT TO HAVE HOME HEALTH.
[2019-02-13 16:31] VITALS: BP 124/69
--- NOTE | 2019-02-13 16:31 | NUR ---
PT RESTING ON CALI. SERENA. VSS. FAMILY AT BEDSIDE.
== END 2019-02-13 16:57 | disposition home or self-care (01) ==
LOC: ED 14:48
DX: E11.65 Type 2 diabetes mellitus with hyperglycemia (principal); I10 Essential (primary) hypertension; G20 Parkinson's disease; Z90.49 Acquired absence of other specified parts of digestive tract
CPT/HCPCS: 36415; 80053; 81003; 82010; 82803; 82962; 85025; 96372; 99283

== ENCOUNTER 2019-02-18 09:58 | Inpatient (IN) | payer MEDICARE, MEDICAID ==
[~2019-02-18] VITALS: Ht 165.1 cm; Wt 52.2 kg
--- NOTE | 2019-02-18 10:28 | NUR ---
HOME BLOOD SUGAR 300-400 REFRACTORY TO METFORMIN/ LOW CARB DIET/ PROPER HYDRATION. APPEARS WELL/VSS. DENIES INFECTION (COUGH/PAINFUL URINATIONS/SKIN WNL PER EXAM) PROVIDER AT BEDSIDE
--- NOTE | 2019-02-18 10:29 | NUR ---
LAB AT BEDSIDE
[2019-02-18] MEDS ORDERED: SODIUM CHLORIDE 0.9% 1,000ML IVBOLUS ONE (10:30)
--- NOTE | 2019-02-18 10:40 | NUR ---
WITH FURTHER EXAM-PATIENT REPORTS SIGNIFICANT SKIN PEELING TO BILATERAL HANDS SINCE RESTARTING METFORMIN 3 DAYS AGO-PROVIDER MADE AWARE TO START PIV/IVF SHORTLY.
[2019-02-18 10:47] LABS: ALBUMIN 3.9 g/dL (3.4-5.0); ANION GAP 9 mmol/L (5-15); CALCIUM 8.9 mg/dL (8.5-10.1); CHLORIDE 102 mmol/L (98-107); CREATININE 0.96 mg/dL (0.7-1.3)
[2019-02-18 10:53] LABS: BASOPHILS # (AUTO) 0.03 x10^3/uL (0-0.1); BASOPHILS % (AUTO) 1 % (0-1); EOSINOPHILS # (AUTO) 0.11 x10^3/uL (0-0.4); EOSINOPHILS % (AUTO) 2 % (1-7); LYMPHOCYTES # (AUTO) 0.91 x10^3/uL (1-3.4); LYMPHOCYTES % (AUTO) 20 % (22-44); MD NO; MEAN CORPUSCULAR HEMOGLOBIN 30.5 pg (27.5-34.5); MEAN CORPUSCULAR HGB CONC 32.2 g/dL (33.2-36.2); MEAN CORPUSCULAR VOLUME 94.9 fL (81-97); MEAN PLATELET VOLUME 7.2 fL (7.4-10.4); MONOCYTES # (AUTO) 0.34 x10^3/uL (0.2-0.8); MONOCYTES % (AUTO) 7 % (2-9); NEUTROPHILS # (AUTO) 3.24 x10^3/uL (1.8-6.8); NEUTROPHILS % (AUTO) 70 % (42-75); PLATELET COUNT 370 x10^3/uL (130-400); RED BLOOD COUNT 4.63 x10^6/uL (4.38-5.82); RED CELL DISTRIBUTION WIDTH 14.4 % (9.4-14.8)
[2019-02-18] MEDS ORDERED: LATA7.5D EACHEYE (10:55)
[2019-02-18] MEDS ORDERED: DOCU240C53 PO (10:55)
--- NOTE | 2019-02-18 11:00 | NUR ---
URINE SAMPLE SENT
--- NOTE | 2019-02-18 11:13 | NUR ---
PIV OBTAINED-IVF STARTED PER EMAR
[2019-02-18 11:37] LABS: MICROSCOPIC NOT IND
[2019-02-18 11:46] LABS: ACETONE, SERUM Negative (Negative)
--- NOTE | 2019-02-18 11:47 | NUR ---
POST IVF/PO FLUID FSBS: 303
[2019-02-18 11:49] LABS: CULTURE INDICATED? NO
--- NOTE | 2019-02-18 11:53 | NUR ---
DIABETIC TRAY ORDERED FOR PATIENT UPDATED ON POC (ADMIT)
--- NOTE | 2019-02-18 12:30 | NUR ---
VITALS REMAIN WNL DIABETIC TRAY DELIVERED TO BEDSIDE REPORT CALLED PATIENT UPDATED ON PENDING TRANSFER
[2019-02-18 14:00] VITALS: BP 145/70
[2019-02-18] MEDS ORDERED: ACETAMINOPHEN 325 MG TABLET PO PRN (15:00)
[2019-02-18] MEDS ORDERED: LABETALOL 5MG/ML, 20ML IVPush PRN (15:00)
[2019-02-18] MEDS: SODIUM CHLORIDE 0.9% 1,000 ML IV SCH (15:16)
[2019-02-18] MEDS ORDERED: DEXTROSE 50%, 50ML SYRINGE IVPush PRN (15:30)
[2019-02-18] MEDS ORDERED: GLUCAGON 1 MG IM PRN (15:30)
[2019-02-18] MEDS ORDERED: DEXTROSE 4 GM TAB.CHEW PO PRN (15:30)
[2019-02-18] MEDS: HEPARIN 5,000 UNITS/ML, 1ML SQ SCH ×2 (15:32→23:47)
[2019-02-18 15:35] LABS: THYROID STIMULATING HORMONE 1.16 mIU/L (0.358-3.740)
[2019-02-18] MEDS: INSULIN LISPRO 100 UNITS/ML, PEN SQ-INSULIN SCH ×2 (16:23→20:05)
[2019-02-18] MEDS: metFORMIN 850 MG TABLET PO SCH (17:09)
[2019-02-18 18:45] VITALS: BP 111/68
[2019-02-18] MEDS: SODIUM CHLORIDE FLUSH 10ML SYR IVF SCH (20:10)
[2019-02-18] MEDS: TOPIRAMATE 25 MG TABLET PO SCH (20:10)
[2019-02-18] MEDS: DOCUSATE CALCIUM 240 MG CAPSULE PO SCH (20:10)
[2019-02-18] MEDS: LATANOPROST OPHTH 0.005%, 2.5ML EACHEYE SCH (22:40)
[2019-02-19 00:56] VITALS: BP 103/65
[2019-02-19] MEDS: SODIUM CHLORIDE 0.9% 1,000 ML IV SCH (00:58)
[2019-02-19 05:27] LABS: BASOPHILS # (AUTO) 0.03 x10^3/uL (0-0.1); BASOPHILS % (AUTO) 1 % (0-1); EOSINOPHILS # (AUTO) 0.13 x10^3/uL (0-0.4); EOSINOPHILS % (AUTO) 2 % (1-7); LYMPHOCYTES % (AUTO) 21 % (22-44); MD NO; MEAN CORPUSCULAR HEMOGLOBIN 30.3 pg (27.5-34.5); MEAN CORPUSCULAR HGB CONC 31.8 g/dL (33.2-36.2); MEAN CORPUSCULAR VOLUME 95.3 fL (81-97); MEAN PLATELET VOLUME 7.5 fL (7.4-10.4); MONOCYTES # (AUTO) 0.31 x10^3/uL (0.2-0.8); MONOCYTES % (AUTO) 6 % (2-9); NEUTROPHILS % (AUTO) 71 % (42-75); PLATELET COUNT 332 x10^3/uL (130-400); RED CELL DISTRIBUTION WIDTH 14.3 % (9.4-14.8)
[2019-02-19 05:31] LABS: ANION GAP 8 mmol/L (5-15); CALCIUM 8.5 mg/dL (8.5-10.1); CHLORIDE 104 mmol/L (98-107)
[2019-02-19 05:34] LABS: ALANINE AMINOTRANSFERASE 16 U/L (12-78); ALKALINE PHOSPHATASE 70 U/L (45-117); BILIRUBIN,TOTAL 0.5 mg/dL (0.2-1.0); CREATININE 0.73 mg/dL (0.7-1.3)
[2019-02-19 07:59] VITALS: BP 119/71
[2019-02-19] MEDS: TAMSULOSIN 0.4 MG CAP.ER.24H PO SCH (09:34)
[2019-02-19] MEDS: metFORMIN 850 MG TABLET PO SCH ×2 (09:34→16:51)
[2019-02-19] MEDS: DOCUSATE CALCIUM 240 MG CAPSULE PO SCH ×2 (09:34→22:03)
[2019-02-19] MEDS: INSULIN LISPRO 100 UNITS/ML, PEN SQ-INSULIN SCH ×4 (09:38→21:58)
[2019-02-19] MEDS: HEPARIN 5,000 UNITS/ML, 1ML SQ SCH ×2 (09:40→16:50)
[2019-02-19] MEDS: SODIUM CHLORIDE FLUSH 10ML SYR IVF SCH ×2 (09:41→22:04)
[2019-02-19 14:45] VITALS: BP 108/69
[2019-02-19 18:50] VITALS: BP 98/59
[2019-02-19] MEDS ORDERED: INSULIN GLARGINE 100 UNITS/ML, PEN SQ-INSULIN SCH (21:00)
[2019-02-19] MEDS: TOPIRAMATE 25 MG TABLET PO SCH (22:05)
[2019-02-19] MEDS: LATANOPROST OPHTH 0.005%, 2.5ML EACHEYE SCH (22:06)
[2019-02-20 01:16] VITALS: BP 111/63
[2019-02-20 06:55] VITALS: BP 101/70
[2019-02-20] MEDS ORDERED: METOCLOPRAMIDE 5 MG/ML, 2ML IVPush ONE (08:30)
[2019-02-20] MEDS ORDERED: ONDANSETRON 2MG/ML, 2ML IVPush PRN (08:30)
[2019-02-20] MEDS: DOCUSATE CALCIUM 240 MG CAPSULE PO SCH ×2 (08:38→20:12)
[2019-02-20] MEDS: metFORMIN 850 MG TABLET PO SCH (08:38)
[2019-02-20] MEDS: HEPARIN 5,000 UNITS/ML, 1ML SQ SCH ×3 (08:38→16:44)
[2019-02-20] MEDS: INSULIN LISPRO 100 UNITS/ML, PEN SQ-INSULIN SCH ×4 (08:38→20:18)
[2019-02-20] MEDS: SODIUM CHLORIDE FLUSH 10ML SYR IVF SCH ×2 (08:39→20:14)
[2019-02-20] MEDS: TAMSULOSIN 0.4 MG CAP.ER.24H PO SCH (08:40)
[2019-02-20 09:15] LABS: ANION GAP 8 mmol/L (5-15); CALCIUM 8.9 mg/dL (8.5-10.1); CHLORIDE 106 mmol/L (98-107)
[2019-02-20 09:16] LABS: CREATININE 0.78 mg/dL (0.7-1.3)
[2019-02-20 09:21] LABS: BASOPHILS # (AUTO) 0.03 x10^3/uL (0-0.1); BASOPHILS % (AUTO) 1 % (0-1); EOSINOPHILS # (AUTO) 0.11 x10^3/uL (0-0.4); EOSINOPHILS % (AUTO) 2 % (1-7); LYMPHOCYTES # (AUTO) 1.03 x10^3/uL (1-3.4); LYMPHOCYTES % (AUTO) 22 % (22-44); MD NO; MEAN CORPUSCULAR HEMOGLOBIN 30.3 pg (27.5-34.5); MEAN CORPUSCULAR HGB CONC 32.3 g/dL (33.2-36.2); MEAN CORPUSCULAR VOLUME 93.8 fL (81-97); MEAN PLATELET VOLUME 7.3 fL (7.4-10.4); MONOCYTES # (AUTO) 0.31 x10^3/uL (0.2-0.8); MONOCYTES % (AUTO) 7 % (2-9); NEUTROPHILS # (AUTO) 3.25 x10^3/uL (1.8-6.8); NEUTROPHILS % (AUTO) 69 % (42-75); PLATELET COUNT 402 x10^3/uL (130-400); RED BLOOD COUNT 4.39 x10^6/uL (4.38-5.82); RED CELL DISTRIBUTION WIDTH 14.4 % (9.4-14.8)
[2019-02-20 13:33] VITALS: BP 88/56
[2019-02-20] MEDS: metFORMIN 500 MG TABLET PO SCH (16:44)
[2019-02-20 19:20] VITALS: BP 100/60
[2019-02-20] MEDS: TOPIRAMATE 25 MG TABLET PO SCH (20:12)
[2019-02-20] MEDS: LATANOPROST OPHTH 0.005%, 2.5ML EACHEYE SCH (20:13)
[2019-02-20] MEDS ORDERED: INSULIN GLARGINE 100 UNITS/ML, PEN SQ-INSULIN SCH (21:00)
[2019-02-21 01:53] VITALS: BP 104/65
[2019-02-21] MEDS: INSULIN LISPRO 100 UNITS/ML, PEN SQ-INSULIN SCH ×3 (07:00→11:00)
[2019-02-21] MEDS: metFORMIN 500 MG TABLET PO SCH (07:37)
[2019-02-21] MEDS: HEPARIN 5,000 UNITS/ML, 1ML SQ SCH ×2 (07:38)
[2019-02-21] MEDS: TAMSULOSIN 0.4 MG CAP.ER.24H PO SCH (07:39)
[2019-02-21] MEDS: DOCUSATE CALCIUM 240 MG CAPSULE PO SCH (07:39)
[2019-02-21] MEDS: SODIUM CHLORIDE FLUSH 10ML SYR IVF SCH (07:39)
[2019-02-21 07:55] VITALS: BP 100/65
[2019-02-21] MEDS ORDERED: GLIP5TAB10 PO (13:36)
[2019-02-21] MEDS ORDERED: METF1000 PO (13:36)
[2019-02-21 13:56] VITALS: BP 111/68
== END 2019-02-21 16:25 | disposition home health service (06) | DRG 638 ==
LOC: ED 10:34 → EDIP 11:47 → 3NE 13:01 → DCLOUNGE 02-21 16:15
PROVIDERS: ADMIT Hospitalist; ATTEND Hospitalist
DX: E11.65 Type 2 diabetes mellitus with hyperglycemia (principal); E87.1 Hypo-osmolality and hyponatremia; D64.9 Anemia, unspecified; E86.0 Dehydration; G20 Parkinson's disease; I10 Essential (primary) hypertension; K30 Functional dyspepsia; N40.0 Benign prostatic hyperplasia without lower urinary tract symptoms; Z66 Do not resuscitate; Z79.4 Long term (current) use of insulin; Z90.49 Acquired absence of other specified parts of digestive tract; R11.2 Nausea with vomiting, unspecified; D63.8 Anemia in other chronic diseases classified elsewhere
CPT/HCPCS: 36415; 80048; 80053; 81003; 82010; 82040; 82962; 83036; 83735; 84100; 84443; 85025; G0378; J1644; J1815; J7030

== ENCOUNTER 2019-12-15 12:36 | Emergency (ER) | payer MEDICARE, OTHER ==
[~2019-12-15] VITALS: Ht 165.1 cm; Wt 59.1 kg
[~2019-12-15 12:36] MED LIST changes: +DOCU240C53 PO; +GLIP5TAB10 PO; +LATA7.5D EACHEYE
--- NOTE | 2019-12-15 13:09 | NUR ---
PIV placed in patient, blood drawn and bedside glucose completed.
[2019-12-15 13:28] LABS: PH, VENOUS 7.393 pH (7.320-7.420)
[2019-12-15 13:29] LABS: MICROSCOPIC INDICATED
[2019-12-15 13:29] LABS: FIO2 ROOM AIR %
[2019-12-15] MEDS ORDERED: SODIUM CHLORIDE 0.9% 1,000ML IVBOLUS ONE (13:30)
[2019-12-15 13:31] LABS: BASOPHILS # (AUTO) 0.01 x10^3/uL (0-0.1); BASOPHILS % (AUTO) 0 % (0-1); EOSINOPHILS # (AUTO) 0.08 x10^3/uL (0-0.4); EOSINOPHILS % (AUTO) 1 % (1-7); LYMPHOCYTES # (AUTO) 1.23 x10^3/uL (1-3.4); LYMPHOCYTES % (AUTO) 19 % (22-44); MD NO; MEAN CORPUSCULAR HEMOGLOBIN 30.8 pg (27.5-34.5); MEAN CORPUSCULAR HGB CONC 32.8 g/dL (33.2-36.2); MEAN CORPUSCULAR VOLUME 93.7 fL (81-97); MEAN PLATELET VOLUME 7.3 fL (7.4-10.4); MONOCYTES # (AUTO) 0.44 x10^3/uL (0.2-0.8); MONOCYTES % (AUTO) 7 % (2-9); NEUTROPHILS # (AUTO) 4.88 x10^3/uL (1.8-6.8); NEUTROPHILS % (AUTO) 74 % (42-75); PLATELET COUNT 258 x10^3/uL (130-400); RED BLOOD COUNT 5.03 x10^6/uL (4.38-5.82); RED CELL DISTRIBUTION WIDTH 15.2 % (9.4-14.8)
[2019-12-15 13:35] LABS: CULTURE INDICATED? NO
[2019-12-15 13:41] LABS: ALANINE AMINOTRANSFERASE 44 U/L (12-78); ANION GAP 11 mmol/L (5-15); CALCIUM 8.9 mg/dL (8.5-10.1); CHLORIDE 100 mmol/L (98-107); CREATININE 0.83 mg/dL (0.7-1.3)
[2019-12-15 13:44] LABS: ALKALINE PHOSPHATASE 107 U/L (45-117); BILIRUBIN,TOTAL 1.3 mg/dL (0.2-1.0); TOTAL PROTEIN 8.4 g/dL (6.4-8.2)
[2019-12-15 14:06] LABS: ACETONE, SERUM Negative (Negative)
--- NOTE | 2019-12-15 14:20 | NUR ---
Pt sleeping. Will continue to monitor
--- NOTE | 2019-12-15 15:49 | NUR ---
Pt has been screaming for help and when RN goes in room, pt c/o being scared because he hates hospitals. Pt also asking for us to call his nephew Thomas. RN asked if patient has his phone number, and he does not. MD ok'd discharge, as he has not taking his Metformin and with ETOH on board his sugar levels will be high. Per MD 358 is not that high, and down from 478 upon arrival. RN informed patient that his records would be pulled to see if a phone number for his nephew can be found. As RN is going through patient's chart, pt walks out of his room fully dressed, IV pulled wanting to find a BR. RN walked with patient to the BR. Additional RN got him some scrub bottoms and socks for discharge. RN called a cab for patient to go home. While waiting on hold for [employer], Thomas called to check on his uncle. Thomas informed RN that patient should not be allowed to go home alone, as he has been drinking for the last 14 days strait. RN inquired as to how he knew patient has been drinking that much and he stated that he and other family members go to his house daily and buy him beer. Today, Thomas wanted to have his uncle placed somewhere so he can be supervised. Thomas left the apartment to put laundry in, and the patient call 911. The police responded to the patients apartment, and told Thomas that the patient has the right to drink as much as he wants, and Thomas was no longer aloud in the patients apartment. [facility], did not inform RN of any difficulties upon picking up the patient. Report from [facility] was that the family was concerned about the fact that patient had been drinking for 14 days strait and not taking his metformin and his blood sugar was high. RN explained to patient that MD was not worried about blood sugars as ETOH is full of sugar. MD did write a prescription to refill his metformin. integrity specialist asked if Thomas would come crop picker the patient and he refused, so patient was sent out in a cab with a voucher. Pt was a/o x3 and ambulating without diff. Pt was escorted to cab by ED RN. Nephew Thomas started to demand that patient's medical records be sent home with him, and RN informed Thomas that if he was truly the POA and could provide proof of that, he would be able to obtain all his medical records from medical records. Thomas hung up on RN. integrity specialist informed and aware of situation.
[2019-12-15 16:10] VITALS: BP 140/72
== END 2019-12-15 16:13 | disposition home or self-care (01) ==
LOC: ED 14:51
DX: F10.220 Alcohol dependence with intoxication, uncomplicated (principal); E11.65 Type 2 diabetes mellitus with hyperglycemia; R00.0 Tachycardia, unspecified; I10 Essential (primary) hypertension; Z90.49 Acquired absence of other specified parts of digestive tract; Y90.9 Presence of alcohol in blood, level not specified
CPT/HCPCS: 36415; 80053; 81001; 82010; 82803; 83690; 85025; 93005; 96360; 99284; J7030

== ENCOUNTER 2021-03-02 13:42 | Emergency (ER) | payer MEDICARE, MEDICAID ==
[~2021-03-02] VITALS: Ht 165.1 cm; Wt 57.9 kg
[~2021-03-02 13:42] MED LIST changes: +HYDR-2214 PO; -HYDR-3240 PO; -LATA2.5D3 RIGHTEYE; +LATA2.5D4 RIGHTEYE; -OXYC5TAB3 PO; +OXYC5TAB98 PO
[2021-03-02 13:51] VITALS: BP 164/85
--- NOTE | 2021-03-02 14:26 | NUR ---
xray at bedside.
== END 2021-03-02 15:16 | disposition home or self-care (01) ==
LOC: ED 14:08
DX: M65.841 Other synovitis and tenosynovitis, right hand (principal); E11.65 Type 2 diabetes mellitus with hyperglycemia; I10 Essential (primary) hypertension; Z90.49 Acquired absence of other specified parts of digestive tract
CPT/HCPCS: 29125; 99283